=== PATIENT | male | born 1985 | race Two or more races ===

== ENCOUNTER 2019-04-12 17:20 | Emergency (ER) | payer OTHER, BC ==
[~2019-04-12] VITALS: Ht 175.3 cm; Wt 81.6 kg
[2019-04-12 19:35] VITALS: BP 127/77
[2019-04-12] MEDS ORDERED: HYDROcodone-ACET 5/325MG TAB PO ONE (21:00)
[2019-04-12] MEDS ORDERED: ONDANSETRON ODT 4 MG TAB PO ONE (21:00)
== END 2019-04-12 22:29 | disposition home or self-care (01) ==
LOC: ER 17:22 → EDBD 17:22 → ER 22:29
DX: S06.0X0A Concussion without loss of consciousness, initial encounter (principal); S16.1XXA Strain of muscle, fascia and tendon at neck level, initial encounter; M50.20 Other cervical disc displacement, unspecified cervical region; X58.XXXA Exposure to other specified factors, initial encounter; Y93.89 Activity, other specified; Y92.89 Other specified places as the place of occurrence of the external cause; Y99.8 Other external cause status
CPT/HCPCS: 70450; 72125; 99285; L0120